=== PATIENT | male | born 1970 | race Caucasian/White ===

== ENCOUNTER 2020-07-20 06:20 | Day surgery (SDC) | payer BC ==
[2020-07-19 09:50] VITALS: BMI 39.3
--- NOTE | 2020-07-19 19:40 | HP ---
HISTORY OF PRESENT ILLNESS: Mr. Rivas is a 50-year-old gentleman presenting for evaluation of left greater than right lower extremity pain and weakness here. States that also seems to have some foot drop on the left side. He has pursued physical therapy to limited degree and feels that his symptoms have somewhat started to improve, specifically as relates to pain. He has also attempted epidural steroid injections with minimal relief. He has MRI from [facility] that reveals severe lumbar stenosis L3-L4 with a small synovial cyst and disk protrusion off to the left, which certainly could impact the descending L4 nerve roots. He hopes to discuss possible surgical intervention. PAST MEDICAL HISTORY: Significant for diabetes. PAST SURGICAL HISTORY: Knee arthroscopy. CURRENT MEDICATIONS: 1. Januvia. 2. Glyburide. 3. Metformin. 4. Crestor. ALLERGIES: NO KNOWN DRUG ALLERGIES. PHYSICAL EXAMINATION: Deferred for telehealth visit. ASSESSMENT: Lumbar stenosis with radiculopathy. PLAN: Dr. Vo met with the patient, reviewed imaging, advocated for L3 diskectomy and synovial cystectomy. He explained to the patient the risks, benefits, and alternatives to the procedure. The patient expressed understanding and elected to move forward with the surgery as discussed. I do believe the patient is mentally competent and capable of making medical decisions for himself. We will move forward with surgery as planned. Job ID: [id number]
[2020-07-20] MEDS ORDERED: Thrombin 5000 UNITS/5 ML VIAL ONE (06:54)
[2020-07-20] MEDS ORDERED: EPINEPHrine 1 MG/ML AMP ONE (06:54)
[2020-07-20] MEDS ORDERED: Bupivacaine PF 0.5% 30 ML VIAL ONE (06:54)
[2020-07-20] MEDS ORDERED: Fentanyl 100 MCG/2 ML VIAL ONE ×3 (07:53→11:38)
[2020-07-20] MEDS ORDERED: SUGAMMADEX SODIUM 500 MG/5 ML VIAL ONE (09:17)
[2020-07-20] MEDS ORDERED: Ondansetron PF 4 MG/2 ML Vial ONE (09:59)
[2020-07-20] MEDS ORDERED: Metoprolol Tartrate 5 MG/5 ML VIAL ONE (09:59)
[2020-07-20] MEDS ORDERED: PROPOFOL 200 MG/20 ML VIAL ONE (09:59)
[2020-07-20] MEDS ORDERED: Ketorolac Tromethamine 30 MG/ML VIAL ONE (09:59)
[2020-07-20] MEDS ORDERED: Lidocaine 1% PF 5 ML VIAL ONE (09:59)
[2020-07-20] MEDS ORDERED: Rocuronium Bromide 10 MG/ML (10ML VIAL) ONE (09:59)
[2020-07-20] MEDS ORDERED: PHENYLEPHRINE-NS 100 MCG/ML 10 ML SYRINGE ONE (09:59)
--- NOTE | 2020-07-20 10:02 | OP ---
DATE OF PROCEDURE: 07/20/2020 [employer] SUPERVISOR: Hernandez Anguiano PA-C INDICATION: Pain. DIAGNOSIS: Lumbar radiculopathy. PROCEDURE PERFORMED: L3-4 synovial cyst resection. ANESTHESIA: General. DESCRIPTION OF PROCEDURE: The patient was brought into the operating room and placed under general anesthesia. He was flipped from the supine to prone position on the operating room table. A linear incision was planned at the L3-L4 segment. After prepping and draping and after an appropriate preoperative pause, the incision was created. The soft tissues were swept away from midline. A self-retaining retractor was placed in the wound for optimal exposure. After confirming the appropriate level with C-arm fluoroscopy, high-speed cutting drill bit as well as 2, 3, and 4-mm Kerrisons were used to perform a laminectomy at the L3-L4 interface on the left. The laminectomy was extended laterally to encompass the medial aspect of the facet joint. There was facet capsule consistent with synovial cyst adherent to the dura, but also emanating from the facet joint. This was removed until the lateral recesses were decompressed. I palpated for disk material of which there was none of significance. The wound was then irrigated. Hemostasis was maintained throughout. The wound was then closed in anatomic layers, and a pressure dressing was applied. There were no known procedural complications. Job ID: [id number]
[2020-07-20] MEDS ORDERED: Tamsulosin HCl 0.4 MG CAP ONE (12:51)
== END 2020-07-20 14:34 | disposition home or self-care (01) ==
LOC: SDC 06:20
PROVIDERS: ATTEND Neurological Surgery
PROC: 01NB0ZZ Release Lumbar Nerve, Open Approach (ICD-10-PCS; principal; 2020-07-20)
DX: M51.26 Other intervertebral disc displacement, lumbar region (principal); M71.38 Other bursal cyst, other site; M48.061 Spinal stenosis, lumbar region without neurogenic claudication; E11.9 Type 2 diabetes mellitus without complications; Z79.84 Long term (current) use of oral hypoglycemic drugs; Z79.899 Other long term (current) drug therapy
CPT/HCPCS: 76000; 93005; 93010; J0171; J0690; J1885; J2405; J2704; J3010; S0020

== ENCOUNTER 2022-01-16 13:20 | Outpatient (CLI) | payer BC ==
[~2022-01-16 13:20] MED LIST: Magnevist 469MG/ML 20 ML VIAL ONE
== END 2022-01-16 13:21 | disposition home or self-care (01) ==
LOC: TBSIIMAG 13:20
PROVIDERS: ATTEND Neurological Surgery
DX: M54.16 Radiculopathy, lumbar region (principal); G95.19 Other vascular myelopathies; M48.061 Spinal stenosis, lumbar region without neurogenic claudication
CPT/HCPCS: 72158; A9579

== ENCOUNTER 2025-03-31 07:28 | Outpatient (CLI) | payer BC | END 2025-03-31 07:29 | disposition home or self-care (01) | LOC: SCSRAD 07:28 | PROVIDERS: ATTEND Family Medicine | DX: R10.9 Unspecified abdominal pain (principal) | CPT/HCPCS: 74019 ==